=== PATIENT | male | born 1995 | race Caucasian/White ===

== ENCOUNTER 2020-02-26 12:33 | Emergency (ER) | payer BC, SELFPAY ==
--- NOTE | 2020-02-26 12:37 | ED.GENADULT ---
HPI - General Adult General Chief complaint: Extremity Injury, Upper Stated complaint: right hand swollen Time Seen by Provider: 02/26/20 12:37 Source: patient Mode of arrival: ambulatory Limitations: no limitations History of Present Illness HPI narrative: 24-year-old male patient presents the [facility] care with complaints of swelling to the right hand. Patient states he thinks he was stung by a yellow jacket sometime yesterday. Patient states that he noticed that his finger started to swell and so he took 50 mg of Benadryl. Patient states that this morning when he woke up the whole hand is swollen and he notices that the swelling continues to the middle of the upper arm. Discussed with patient he took another 50 mg of Benadryl this morning and has not had much relief since then. Patient states that has helped the itching but continues to swell. Denies any chest pain, shortness of breath, trouble swallowing. Denies any swelling to the face tongue. Patient denies any fevers. Related Data Allergies Allergy/AdvReac Type Severity Reaction Status Date / Time No Known Allergies Allergy Unknown Uncoded 02/26/20 12:49 Review of Systems Review of Systems: Narrative: CONSTITUTIONAL: Denies fever, chills, or sweats. EYES: Denies visual changes, redness, or discharge. ENT: Denies rhinorrhea, congestion, sore throat, or otalgia. CARDIOVASCULAR: Denies chest pain, palpitations, or edema. RESPIRATORY: Denies cough or dyspnea. GASTROINTESTINAL: Denies abdominal pain, nausea, vomiting, or diarrhea. GENITOURINARY: Denies dysuria or hematuria. SKIN: Denies rash or itching. MUSCULOSKELETAL: Denies back pain, joint pain, or myalgia. Positive swelling to right hand since yesterday NEUROLOGIC: Denies headache, numbness, or weakness. PSYCHIATRIC: Denies anxiety or depression. PMFSH Comments At the time of my signature I agree with nursing past medical history, surgical, social, and family history. There is no relevant family history pertinent to the presenting complaint. Exam Narrative: Exam Narrative: GENERAL: Well-appearing, well-nourished, and in no acute distress. HEAD: Normocephalic, atraumatic. EYES: PERRLA and EOMI. ENT: Nares clear, no rhinorrhea or epistaxis. Mucous membranes moist. NECK: Supple. No lymphadenopathy CHEST: Clear to auscultation. No respiratory distress. HEART: Regular rate and rhythm. No murmur heard. Normal peripheral pulses. ABDOMEN: Soft, nontender, nondistended, normal active bowel sounds. EXTREMITIES: Normal range of motion. No edema. SKIN: Warm, dry, no rash. Patient has a small punctate han to the PIP joint on the dorsal side of the right hand with surrounding swelling. The swelling extends up to the middle of the right upper arm. The hand does feel warm to the touch. There is no discharge noted from the punctate han at this time. NEURO: No focal deficits. Alert and oriented x3. Course Vital Signs Vital signs: Vital Signs Temperature 37.7 C H 02/26/20 12:40 Pulse Rate 109 H 02/26/20 12:40 Respiratory Rate 16 02/26/20 12:40 Blood Pressure 151/88 H 02/26/20 12:40 Pulse Oximetry 98 02/26/20 12:40 Temperature 37.7 C H 02/26/20 12:40 Pulse Rate 109 H 02/26/20 12:40 Respiratory Rate 16 02/26/20 12:40 Blood Pressure 151/88 H 02/26/20 12:40 Pulse Oximetry 98 02/26/20 12:40 Vital signs reviewed. The patient has been informed that they may have pre-hypertension or Hypertension based on a BP reading in the department. I recommend that the patient call the primary care provider listed on their discharge instructions or a physician of their choice this week to arrange follow up for further evaluation of possible pre-hypertension or Hypertension Medical Decision Making Differential Diagnosis Differential Diagnosis: Differential diagnosis: Paronychia, felon, cellulitis, flexor tenosynovitis, mallet finger, boutonniere deformity, flexor tendons, dislocated digits, unstable fracture, unsta
[2020-02-26 12:40] VITALS: BP 151/88; PULSE 109; RESP 16; TEMP 37.7; O2SAT 98
== END 2020-02-26 12:59 | disposition home or self-care (01) ==
PROVIDERS: Emergency Provider Nurse Practitioner Family; PCP Physician Assistant
DX: L03.113 Cellulitis of right upper limb (principal); T63.461A Toxic effect of venom of wasps, accidental (unintentional), initial encounter; R03.0 Elevated blood-pressure reading, without diagnosis of hypertension
CPT/HCPCS: 99213; G0463

== ENCOUNTER 2020-02-27 10:54 | Emergency (ER) | payer BC, SELFPAY ==
[2020-02-27 10:58] VITALS: BP 144/78; PULSE 87; RESP 18; TEMP 37.3; O2SAT 98
--- NOTE | 2020-02-27 11:06 | ED.GENADULT ---
HPI - General Adult General Chief complaint: Allergic Reaction Stated complaint: allergic reaction Time Seen by Provider: 02/27/20 11:06 Source: patient and RN notes reviewed Mode of arrival: ambulatory Limitations: no limitations History of Present Illness HPI narrative: This is a 24 years old male presents to the office for an evaluation of possible allergic reaction to antibiotic. He was seen here yesterday for insect bite; which he thinks the bite site has improved significantly; however he woke up this morning noticed hives all over his body except his face. He strongly believe he is allergic to cephalexin because he did not have hives after he got stung from the yellowjacket except the localize swelling on his right hand. He only had 1 dose of cephalexin last night. He did not take anymore cephalexin this morning except prednisone. Denies difficulty breathing or shortness of breath. Denies history of severe allergic reaction to insect bite in the past. He has never taken cephalexin in the past. He is not diabetic. I reviewed patient's previous visit. HPI - General Adult General Chief complaint: Extremity Injury, Upper Stated complaint: right hand swollen Time Seen by Provider: 02/26/20 12:37 Source: patient Mode of arrival: ambulatory Limitations: no limitations History of Present Illness HPI narrative: 24-year-old male patient presents the [facility] care with complaints of swelling to the right hand. Patient states he thinks he was stung by a yellow jacket sometime yesterday. Patient states that he noticed that his finger started to swell and so he took 50 mg of Benadryl. Patient states that this morning when he woke up the whole hand is swollen and he notices that the swelling continues to the middle of the upper arm. Discussed with patient he took another 50 mg of Benadryl this morning and has not had much relief since then. Patient states that has helped the itching but continues to swell. Denies any chest pain, shortness of breath, trouble swallowing. Denies any swelling to the face tongue. Patient denies any fevers. Related Data Allergies Allergy/AdvReac Type Severity Reaction Status Date / Time cephalexin [From Keflex] AdvReac Intermediate hives Verified 02/27/20 11:20 No Known Allergies Allergy Unknown Uncoded 02/26/20 12:49 Review of Systems Review of Systems: Narrative: CONSTITUTIONAL: Denies fever or feeling ill ENT: Denies congestion, sore throat or difficulty breathing CARDIOVASCULAR: Denies chest pain RESPIRATORY: Denies dyspnea GASTROINTESTINAL: Denies abdominal pain, nausea, vomiting SKIN: Reports hives all over his body; however he noticed the redness has subside since he took prednisone this morning. MUSCULOSKELETAL: Denies joints pain NEUROLOGIC: Denies lightheaded PMFSH Comments At time of signature, I agree with nursing past medical, surgical, social and family history. There is no relevant family history pertinent to the presenting complaint. Exam Narrative: Exam Narrative: GENERAL: This is a well-nourished, well-developed patient, in no apparent distress. EYES: Sclera clear/white. Vision is grossly intact. EARS: External ears normal, auditory canals clear and without drainage, TMs normal without perforation. Hearing grossly intact. NOSE: External nose normal with no obvious nasal discharge, nares without redness, no rhinorrhea. THROAT: Mucous membranes moist, posterior pharynx clear. NECK: Neck supple, non-tender without lymphadenopathy, masses or thyromegaly. CARDIOVASCULAR: Regular rate and rhythm without murmurs, gallops, or rubs. RESPIRATORY: Clear to auscultation. Breath sounds equal bilaterally. No wheezes, stridor noted. GASTROINTESTINAL: Abdomen soft, non-tender, nondistended. Bowel sounds are active. No hepato-splenomegaly, or palpable masses. No guarding. SKIN:generalize urticaria noted on his front and back torso; no rash on face/neck or extremities. Right arm noted edematous with
== END 2020-02-27 11:25 | disposition home or self-care (01) ==
PROVIDERS: Emergency Provider Nurse Practitioner
DX: L50.9 Urticaria, unspecified (principal); T50.905A Adverse effect of unspecified drugs, medicaments and biological substances, initial encounter
CPT/HCPCS: 99213; G0463

== ENCOUNTER 2022-02-26 17:10 | Emergency (ER) | payer BC, SELFPAY ==
[2022-02-26 17:20] VITALS: BP 148/93; PULSE 104; RESP 18; TEMP 37.6; O2SAT 98
--- NOTE | 2022-02-26 17:25 | ED.SKABFB ---
HPI - Skin/Abscess/Foreign Bdy General Chief complaint: Wound/Laceration Stated complaint: spider bites on legs Time Seen by Provider: 02/26/22 17:24 Source: patient and RN notes reviewed Mode of arrival: ambulatory Limitations: no limitations History of Present Illness HPI narrative: 26-year-old male presents with concern for 5-day history of spider bites on his legs. He did not see what bit him he just noticed 1 bite on his left leg and 3 bites on his right leg. He reports they are itchy. He reports that are surrounded with redness and one of them is draining. He denies any exposure to ticks MD complaint: insect bite/sting Related Data Allergies Allergy/AdvReac Type Severity Reaction Status Date / Time cephalexin [From Keflex] AdvReac Intermediate hives Verified 02/26/22 17:36 Review of Systems Review of Systems: CONSTITUTIONAL: Denies malaise, chills, sweats, or fever. EYES: Denies redness, or discharge. ENT: Denies rhinorrhea, congestion, swollen lips, swollen tongue CARDIOVASCULAR: Denies chest pain, palpitations, or edema. RESPIRATORY: Denies cough or dyspnea. GASTROINTESTINAL: Denies abdominal pain, nausea, vomiting SKIN: Reports both legs MUSCULOSKELETAL: Denies joint painor myalgia. NEUROLOGIC: Denies headache. All systems reviewed & are unremarkable except as noted in HPI and below PMFSH Comments At time of signature, agree with nursing past medical, surgical, social and family history. There is no relevant family history pertinent to the presenting complaint Exam Narrative: GENERAL: Well-appearing, well-nourished, and in no acute distress. HEAD: Normocephalic, atraumatic. EYES: PERRLA, conjunctivae clear ENT: Mucous membranes moist. NECK: Supple. No lymphadenopathy CHEST: Clear to auscultation. No respiratory distress. HEART: Regular rate and rhythm. SKIN: Warm, dry. Annular erythema with central scab with clear drainage noted to the left lower leg, slightly tender to touch. 3 annular areas of erythema with central scabs noted to the right leg without drainage NEURO: Alert and oriented x3. PSYCH: Normal mood and affect Course Course Emergency Course: Patient is aware of diagnosis, understands and agrees to treatment plan. Anticipatory guidance given. Patient agrees to follow-up as directed and is aware of reasons to seek care at the emergency department. Portions of this record may have been created with voice recognition software Level of Care: Express Care Visit Vital Signs Vital signs: Reviewed. MDM - Skin/Abscess/Foreign Bdy MDM Narrative Medical decision making narrative: Does not appear at this time to be erythema multiforme, bullous, SJS, TEN; no evidence at this time to suggest RMSF, endocarditis or Lyme disease; patient looks well, nontoxic and is tolerating oral intake; no neurologic signs or symptoms; no headache, photophobia or neck pain; afebrile; appropriate for initial outpatient treatment; discussed the importance of follow-up, patient agrees; question, viral exanthema, contact dermatitis, allergic dermatitis, eczema, urticaria, Lyme disease, bull's-eye rash, brown recluse bite, cellulitis, infected insect bite. No soft palate or uvula edema, no tongue, lip edema or other mucosal involvement, no respiratory compromise, no stridor, no wheezing, no wheezing, no history of syncope, no hypotension, no nausea, vomiting, or diarrhea. Instructed patient to go to nearest ER immediately for any worsening symptoms including but not limited to: fever, spreading rash, pain, sore throat, headache, dizziness, chest pain, trouble breathing, or any symptoms concerning to the patient. Critical Care Time Critical Care Time Critical Care Time: No Discharge Plan Discharge Clinical Impression: Infected insect bite Patient Disposition: Home, Self-Care Condition: Stable Instructions: Antibiotic Form, Insect Bite or Sting (ED) Additional Instructions: Please follow up with your Primary
== END 2022-02-26 17:37 | disposition home or self-care (01) ==
PROVIDERS: Emergency Provider Nurse Practitioner; PCP Nurse Practitioner Family
DX: S80.862A Insect bite (nonvenomous), left lower leg, initial encounter (principal); S80.861A Insect bite (nonvenomous), right lower leg, initial encounter; L08.9 Local infection of the skin and subcutaneous tissue, unspecified; W57.XXXA Bitten or stung by nonvenomous insect and other nonvenomous arthropods, initial encounter
CPT/HCPCS: 99213; G0463